=== PATIENT | male | born 1995 | race Caucasian/White ===

== ENCOUNTER 2021-01-18 21:48 | Emergency (ER) | payer SELFPAY ==
--- NOTE | 2021-01-18 22:45 | EDM.PDOC ---
ED HPI GENERAL MEDICAL PROBLEM - General Chief Complaint: Allergic Reaction Stated Complaint: HIVES AFTER BEE STING Time Seen by Provider: 01/18/21 22:35 Source of Information: Reports: Patient, Family, RN Notes Reviewed History Limitations: Reports: No Limitations - History of Present Illness INITIAL COMMENTS - FREE TEXT/NARRATIVE: 25-year-old gentleman presents emergency department today with a rash mainly on his left side it is consistent with hives he did get stung by bee this morning did take some Benadryl has had not any difficulty breathing or with swallowing difficulties - Related Data Allergies Allergy/AdvReac Type Severity Reaction Status Date / Time No Known Allergies Allergy Verified 01/18/21 22:22 Home Meds: Home Meds EPINEPHrine [Epipen 2-Enzo] 0.3 mg IJ ONETIME #2 auto.injct 01/18/21 [Rx] Past Medical History Musculoskeletal History: Reports: Fracture Other Musculoskeletal History: left wrist - Infectious Disease History Infectious Disease History: Reports: Chicken Pox - Past Surgical History HEENT Surgical History: Reports: Tonsillectomy Social & Family History - Tobacco Use Tobacco Use Status *Q: Never Tobacco User - Caffeine Use Caffeine Use: Reports: None - Recreational Drug Use Recreational Drug Use: No ED ROS ALLERGIC REACTION - Review of Systems Review Of Systems: See Below Constitutional: Reports: No Symptoms HEENT: Reports: No Symptoms Respiratory: Reports: No Symptoms Cardiovascular: Reports: No Symptoms GI/Abdominal: Reports: No Symptoms Skin: Reports: Rash ED EXAM GENERAL NO PERIP PULSE - Physical Exam Exam: See Below Exam Limited By: No Limitations General Appearance: Alert, WD/WN, No Apparent Distress Respiratory/Chest: No Respiratory Distress, Lungs Clear, Normal Breath Sounds, No Accessory Muscle Use, Chest Non-Tender Cardiovascular: Regular Rate, Rhythm, No Murmur Skin Exam: Other (Hives type rash predominantly on the left trunk) Course - Vital Signs Last Recorded V/S: Last Vital Signs Temp 98.2 F 01/18/21 22:21 Pulse 97 01/18/21 22:40 Resp 16 01/18/21 22:21 BP 154/95 H 01/18/21 22:40 Pulse Ox 96 01/18/21 22:40 Departure - Departure Time of Disposition: 22:44 Disposition: Home, Self-Care 01 Condition: Fair Clinical Impression: Allergic reaction to bee sting - Discharge Information Prescriptions: EPINEPHrine [Epipen 2-Enzo] 0.3 mg IJ ONETIME #2 auto.injct Instructions: Bee, Wasp, or Hornet Sting, Adult Referrals: PCP,None [Primary Care Provider] - Additional Instructions: Take the full course of prednisone 20 mg once a day for the next 3 days, your EpiPen has been faxed to [email or web address] in [facility], call or return to the emergency department worsening of symptoms Sepsis Event Note (ED) - Evaluation Sepsis Screening Result: No Definite Risk - Focused Exam Vital Signs: Vital Signs Temp Pulse Resp BP Pulse Ox 01/18/21 22:40 97 154/95 H 96 01/18/21 22:21 98.2 F 99 16 155/91 H 97 01/18/21 22:08 98.2 F 99 16 155/91 H 97 - Assessment/Plan Plan: Assessment Acuity = acute Site and laterality = allergic reaction Etiology = bee sting Manifestations = hives Location of injury = Home Lab values = none Plan Continue to use the Benadryl as needed, start prednisone 20 mg once a day for the next 3 days, prescription was written for an EpiPen faxed to his pharmacy [email or web address] in [facility] This note was dictated using [employer] voice recognition software please call with any questions on syntax or grammar.
== END 2021-01-18 22:57 | disposition home or self-care (01) ==
LOC: JP.ED 21:48
DX: T63.441A Toxic effect of venom of bees, accidental (unintentional), initial encounter (principal)
CPT/HCPCS: 99282